=== PATIENT | female | born 1955 | race Caucasian/White ===

== ENCOUNTER 2017-06-24 16:03 | Inpatient (IN) | payer OTHER ==
[~2017-06-24] VITALS: Ht 147.3 cm; Wt 52.6 kg
[2017-06-24 16:13] VITALS: BP 115/69; PULSE 77; RESP 20; TEMP 99.6; O2SAT 100
[2017-06-24] MEDS ORDERED: LORazepam 2 MG TAB PO PRN ×2 (16:15→18:30)
[2017-06-24] MEDS ORDERED: LORazepam 2 MG/ML VIAL IV PUSH PRN ×8 (16:15→18:30)
[2017-06-24] MEDS ORDERED: FLUMAZENIL 0.5 MG/5 ML VIAL IV PUSH PRN ×2 (16:15→18:30)
[2017-06-24] MEDS ORDERED: LORazepam 1 MG TAB PO PRN ×2 (16:15→18:30)
--- NOTE | 2017-06-24 16:18 | PD ---
HPI Chief Complaint: Psychiatric Symptoms Time Seen by Provider: 16:10 Travel History International Travel<30 days: No Contact w/Intl Traveler<30days: No Traveled to known affect area: No History of Present Illness HPI 62-year-old female brought in under the Sanchez act from [facility]. Patient was seen earlier in [facility], and Daniel acted for suicidal ideation. Patient was intoxicated, and stated that she wanted to kill herself and she has no friends and hates her life. She was then placed under the Sanchez acted inappropriately transferred to [facility] who then sent her here due to her intoxication. She is here for medical clearance and psych eval. She has no known drug allergies. [facility] Social History Alcohol Use: Yes Tobacco Use: No Substance Use: No Allergies-Medications (Allergen,Severity, Reaction): Coded Allergies: No Known Allergies (Unverified , 06/24/17) Reported Meds & Prescriptions Reported Meds & Active Scripts Active Active Prescriptions or Reported Medications Unobtainable Review of Systems Except as stated in HPI: all other systems reviewed are Neg General / Constitutional: No: Fever Eyes: No: Visual changes HENT: No: Headaches Cardiovascular: No: Chest Pain or Discomfort Respiratory: No: Shortness of Breath Gastrointestinal: No: Abdominal Pain Genitourinary: No: Dysuria Musculoskeletal: No: Pain Skin: No Rash Neurologic: No: Weakness Psychiatric: Positive: Depression, Suicidal Ideations, Substance Abuse Endocrine: No: Polydipsia Hematologic/Lymphatic: No: Easy Bruising Physical Exam Exam Limitations: Intoxication Narrative GENERAL: Patient is intoxicated. She appears in no obvious distress. She is cooperative. SKIN: Warm and dry. Normal color. Normal turgor. No rash. Patient has a left -sided olecranon tenderness and swelling with small superficial abrasion. HEAD: Atraumatic. Normocephalic. EYES: Pupils equal and round. No scleral icterus. No injection or drainage. ENT: No nasal bleeding or discharge. Mucous membranes pink and moist. Pharynx is clear. Airways patent NECK: Trachea midline. No JVD. Supple and nontender. CARDIOVASCULAR: Regular rate and rhythm. RESPIRATORY: No accessory muscle use. Clear to auscultation. Breath sounds equal bilaterally. GASTROINTESTINAL: Abdomen soft, non-tender, nondistended. Hepatic and splenic margins not palpable. MUSCULOSKELETAL: Extremities without clubbing, cyanosis, or edema. No obvious deformities. NEUROLOGICAL: Awake and alert. No obvious cranial nerve deficits. Motor grossly within normal limits. Five out of 5 muscle strength in the arms and legs. Normal speech. PSYCHIATRIC: Intoxicated Data Data Last Documented VS Vital Signs Date Time Temp Pulse Resp B/P (MAP) Pulse Ox O2 Delivery O2 Flow Rate FiO2 06/24/17 18:08 100 06/24/17 16:13 99.6 77 20 99 Orders Orders Complete Blood Count With Diff (06/24/17 16:13) Comprehensive Metabolic Panel (06/24/17 16:13) Thyroid Stimulating Hormone (06/24/17 16:13) Urinalysis - C+S If Indicated (06/24/17 16:13) Psych Screen (06/24/17 16:13) Drug Screen, Random Urine (06/24/17 16:13) Alcohol Withdrawal Asmt-Ciwa Q4HX18 (06/24/17 16:13) Flumazenil Inj (Romazicon Inj) (06/24/17 16:15) Lorazepam (Ativan) (06/24/17 16:15) Lorazepam Inj (Ativan Inj) (06/24/17 16:15) Lorazepam (Ativan) (06/24/17 16:15) Lorazepam Inj (Ativan Inj) (06/24/17 16:15) Lorazepam Inj (Ativan Inj) (06/24/17 16:15) Lorazepam Inj (Ativan Inj) (06/24/17 16:15) Elbow, Complete (4 Vws) (06/24/17 16:39) Splinting (06/24/17 ) Iv Access Insert/Monitor (06/24/17 17:15) Ecg Monitoring (06/24/17 17:15) Oximetry (06/24/17 17:15) Sodium Chloride 0.9% Flush (Ns Flush) (06/24/17 17:15) Chest, Single Ap (06/24/17 17:15) Nicotine 21 Mg Patch.24 Hr (Habitrol 21 (06/24/17 17:45) Consult Medical Oncology (06/24/17 ) Consult Psychiatry (06/24/17 ) Admit Order (Ed Use Only) (06/24/17 18:16) Vital Signs (Adult) Q4H (06/24/17 18:16) Bedside Glucose KARO.CSUGAR (06/24/17 18:16) Intake + Output KARO.QSHIFT (06/24/17 18:16) Alcohol Withdrawal Asmt-Ciwa Q4HX18 (06/24/17 18:16) ^ Seizure Precautions (06/24/17 18:16) Client Success Specialist / Telemetry KARO.Q8H (06/24/17 18:16) Diet Heart Healthy (06/24/17 Dinner) Sodium Chloride 0.9% Flush (Ns Flush) (06/24/17 18:30) Sodium Chloride 0.9% Flush (Ns Flush) (06/24/17 21:00) Folic Acid (Folate) (06/25/17 09:00) Thiamine (Vit B1) (Vitamin B1) (06/25/17 09:00) Multivitamins-Minerals Therap (Theragran (06/25/17 09:00) Ondansetron Inj (Zofran Inj) (06/24/17 18:30) Comprehensive Metabolic Panel (06/25/17 06:00) Lipase (06/24/17 18:16) Magnesium (Mg) (06/24/17 18:16) Phosphorus (Po4) (06/24/17 18:16) Complete Blood Count With Diff (06/25/17 06:00) Alcohol (Ethanol) (06/24/17 18:16) Drug Screen, Random Urine (06/24/17 18:16) Eeg Study (06/24/17 ) Consult Cm-Etoh Abuse Dc Plan (06/24/17 ) Flumazenil Inj (Romazicon Inj) (06/24/17 18:30) Lorazepam (Ativan) (06/24/17 18:30) Lorazepam Inj (Ativan Inj) (06/24/17 18:30) Lorazepam (Ativan) (06/24/17 18:30) Lorazepam Inj (Ativan Inj) (06/24/17 18:30) Lorazepam Inj (Ativan Inj) (06/24/17 18:30) Lorazepam Inj (Ativan Inj) (06/24/17 18:30) Enoxaparin Inj (Lovenox Inj) (06/24/17 20:00) Scd Bilateral/Knee High KARO.BID (06/24/17 18:16) Esteban Bilateral/Knee High KARO.QSHIFT (06/24/17 18:16) ^ Medication Reconciliation (06/24/17 18:19) Labs Laboratory Tests Test 06/24/17 16:20 White Blood Count 7.9 TH/MM3 Red Blood Count 4.94 MIL/MM3 Hemoglobin 16.7 GM/DL Hematocrit 47.8 % Mean Corpuscular Volume 96.8 FL Mean Corpuscular Hemoglobin 33.8 PG Mean Corpuscular Hemoglobin Concent 35.0 % Red Cell Distribution Width 14.6 % Platelet Count 285 TH/MM3 Mean Platelet Volume 8.5 FL Neutrophils (%) (Auto) 57.0 % Lymphocytes (%) (Auto) 35.7 % Monocytes (%) (Auto) 3.4 % Eosinophils (%) (Auto) 2.7 % Basophils (%) (Auto) 1.2 % Neutrophils # (Auto) 4.5 TH/MM3 Lymphocytes # (Auto) 2.8 TH/MM3 Monocytes # (Auto) 0.3 TH/MM3 Eosinophils # (Auto) 0.2 TH/MM3 Basophils # (Auto) 0.1 TH/MM3 CBC Comment DIFF FINAL Differential Comment Blood Urea Nitrogen 16 MG/DL Creatinine 1.19 MG/DL Random Glucose 98 MG/DL Total Protein 7.8 GM/DL Albumin 3.9 GM/DL Calcium Level 9.7 MG/DL Alkaline Phosphatase 70 U/L Aspartate Amino Transf (AST/SGOT) 37 U/L Alanine Aminotransferase (ALT/SGPT) 25 U/L Total Bilirubin 0.3 MG/DL Sodium Level 141 MEQ/L Potassium Level 4.4 MEQ/L Chloride Level 108 MEQ/L Carbon Dioxide Level 26.7 MEQ/L Anion Gap 6 MEQ/L Estimat Glomerular Filtration Rate 46 ML/MIN Thyroid Stimulating Hormone 3rd Gen 0.931 uIU/ML MDM Medical Decision Making Medical Screen Exam Complete: Yes Emergency Medical Condition: Yes Medical Record Reviewed: Yes Differential Diagnosis Sanchez act. Intoxication. Suicidal ideation. Olecranon contusion. Possible fracture. Narrative Course Patient is intoxicated but appears medically stable time exam. Reported blood alcohol level is 248 from [facility]. Psychiatric labs ordered per protocol. Patient is placed on the [facility] protocol. Psychiatric screening is ordered. CBC is unremarkable except for hemoglobin of 16.7 and a hematocrit of 47.8. X-ray of the left elbow shows: There is a fracture through the olecranon with overlying soft tissue swelling. They also appeared to be some lytic changes within the olecranon. Differential diagnosis includes infection and tumor. No other definite fracture identified. CMP shows Patient is placed in a long posterior arm splint on the left by [facility]. Calls placed to the hospitalist for admission. Diagnosis Primary Impression: Fracture of left olecranon process Qualified Codes: S52.022A - Displaced fracture of olecranon process without intraarticular extension of left ulna, initial encounter for closed fracture Additional Impressions: Lytic bone lesions on xray Alcohol intoxication Qualified Codes: F10.920 - Alcohol use, unspecified with intoxication, uncomplicated Suicidal ideations Admitting Information Admitting Physician Requests: Admit Scripts Unable to Obtain Active Prescriptions or Reported Meds Condition: Stable William Lewis Jun 24, 2017 16:18
[2017-06-24 16:47] LABS: AUTOMATED NEUTROPHIL # 4.5 TH/MM3 (1.8-7.7); BASOPHIL # 0.1 TH/MM3 (0-0.2); BASOPHIL % 1.2 % (0.0-2.0); EOSINOPHIL # 0.2 TH/MM3 (0-0.4); EOSINOPHIL % 2.7 % (0.0-4.0); HEMATOCRIT 47.8 % (35.0-46.0); HEMOGLOBIN 16.7 GM/DL (11.6-15.3); LYMPH % 35.7 % (9.0-44.0); LYMPHOCYTE # 2.8 TH/MM3 (1.0-4.8); MEAN CELL VOLUME 96.8 FL (80.0-100.0); MEAN CORPUSCULAR HEMOGLOBIN 33.8 PG (27.0-34.0); MEAN PLATELET VOLUME 8.5 FL (7.0-11.0); MONO % 3.4 % (0.0-8.0); MONOCYTE # 0.3 TH/MM3 (0-0.9); PLATELET COUNT 285 TH/MM3 (150-450); RED BLOOD COUNT 4.94 MIL/MM3 (4.00-5.30); RED CELL DISTRIBUTION WIDTH 14.6 % (11.6-17.2); WHITE BLOOD COUNT 7.9 TH/MM3 (4.0-11.0)
--- NOTE | 2017-06-24 17:05 | RADRPT ---
EXAM DATE/TIME: 06/24/2017 16:49 [facility] COMPARISON: No previous studies available for comparison. INDICATIONS : Fall. Left elbow pain. MEDICAL HISTORY : None. SURGICAL HISTORY : None. ENCOUNTER: Initial ACUITY: 1 day PAIN SCORE: 9/10 LOCATION: Left upper extremity FINDINGS: There is a fracture through the olecranon with overlying soft tissue swelling. They also appeared to be some lytic changes within the olecranon. Differential diagnosis includes infection and tumor. No o ther definite fracture identified. CONCLUSION: 1. Mildly displaced olecranon fracture with some probable lytic changes within the proximal ulna, wit h overlying soft tissue swelling. Differential diagnosis includes infection and tumor. Saul Garsia MD on June 24, 2017 at 17:00 Board Certified Radiologist. This report was verified electronically.
[2017-06-24] MEDS ORDERED: SODIUM CHLORIDE 0.9% FLUSH 10 ML FLUSH IV FLUSH PRN ×3 (17:15→19:00)
[2017-06-24 17:21] LABS: ALKALINE PHOSPHATASE 70 U/L (45-117); TOTAL BILIRUBIN ADULT 0.3 MG/DL (0.2-1.0); TOTAL PROTEIN 7.8 GM/DL (6.4-8.2)
[2017-06-24 17:27] LABS: ALBUMIN 3.9 GM/DL (3.4-5.0); ALT (GPT) 25 U/L (10-53); AST (GOT) 37 U/L (15-37); BICARBONATE 26.7 MEQ/L (21.0-32.0); BLOOD UREA NITROGEN 16 MG/DL (7-18); CALCIUM 9.7 MG/DL (8.5-10.1); CHLORIDE 108 MEQ/L (98-107); CREATININE 1.19 MG/DL (0.50-1.00); GLOMERULAR FILTRATION RATE 46 ML/MIN (>89); GLUCOSE,RANDOM 98 MG/DL (74-106); SODIUM (NA) 141 MEQ/L (136-145)
--- NOTE | 2017-06-24 17:35 | RADRPT ---
EXAM DATE/TIME: 06/24/2017 17:25 [facility] COMPARISON: No previous studies available for comparison. INDICATIONS : Fall. Congestion. Pre-op. MEDICAL HISTORY : None. SURGICAL HISTORY : None. ENCOUNTER: Initial ACUITY: 1 day PAIN SCORE: 4/10 LOCATION: Bilateral chest FINDINGS: A single view of the chest demonstrates the lungs to be symmetrically aerated without evidence of mas s, infiltrate or effusion. The cardiomediastinal contours are unremarkable. Osseous structures are intact. CONCLUSION: No acute disease. Saul Garsia MD on June 24, 2017 at 17:32 Board Certified Radiologist. This report was verified electronically.
[2017-06-24] MEDS ORDERED: NICOTINE 21 MG/24 HR PATCH T-DERMAL ONE (17:45)
[2017-06-24 18:08] VITALS: O2SAT 100
--- NOTE | 2017-06-24 18:17 | HHI.HP ---
HPI [facility] Primary Care Physician Unknown Admission Diagnosis Diagnoses: Chief Complaint: fall/alcohol use/ Suicidal ideation Travel History International Travel<30 Days: No Contact w/Intl Traveler <30 Da: No Traveled to Known Affected Are: No History of Present Illness 62-year-old female brought in under the Sanchez act from [facility]. Patient was seen earlier in [facility], and Sanchez acted for suicidal ideation. Patient was intoxicated, and stated that she wanted to kill herself and she has no friends and hates her life. She was then placed under the Sanchez acted inappropriately transferred to [facility] who then sent her here due to her intoxication. She is here for medical clearance and psych eval. She has no known drug allergies. Patient in agitated and fidgety. With flight of ideas. Says last drink was today 2 glassed of hard liquor. Says she has pain in her left elbow. No n/v/d/c. Patrick chest pain or sob. Says she usually doesn't get withdrawals. Review of Systems ROS Limitations: Clinical Condition, Intoxication, Psychotic Except as stated in HPI: all other systems reviewed are Neg Past Family Social History Past Medical History HTN Past Surgical History tubal lig appendectomy Reported Medications Last Impressions Chest X-Ray 06/24/17 1715 Signed Impressions: Service Date/Time: Saturday, June 24, 2017 17:25 - CONCLUSION: No acute disease. Saul Garsia MD Elbow X-Ray 06/24/17 1639 Signed Impressions: Service Date/Time: Saturday, June 24, 2017 16:49 - CONCLUSION: 1. Mildly displaced olecranon fracture with some probable lytic changes within the proximal ulna, with overlying soft tissue swelling. Differential diagnosis includes infection and tumor. Saul Garsia MD Allergies: Coded Allergies: No Known Allergies (Unverified , 06/24/17) Family History Father with hemochromatosis Social History Tobacco use 1/2 PPD started smoking at 14 ya EtOH use today 2 glassed of hard liquor with binge drinking Illicit drug use back in her youth many but did not "stuck" with me, in '60s Physical Exam Vital Signs Vital Signs Date Time Temp Pulse Resp B/P (MAP) Pulse Ox O2 Delivery O2 Flow Rate FiO2 06/24/17 18:08 100 06/24/17 16:13 99.6 77 20 115/69 (84) 100 99 Physical Exam GENERAL: This is a well-nourished, well-developed patient, in no apparent distress. Agitated, fidgety. SKIN: No rashes, ecchymoses or lesions. Cool and dry. HEAD: Atraumatic. Normocephalic. No temporal or scalp tenderness. EYES: Pupils equal round and reactive. Extraocular motions intact. No scleral icterus. No injection or drainage. ENT: Nose without bleeding, purulent drainage or septal hematoma. Throat without erythema, tonsillar hypertrophy or exudate. Uvula midline. Airway patent. NECK: Trachea midline. No JVD or lymphadenopathy. Supple, nontender, no meningeal signs. CARDIOVASCULAR: Regular rate and rhythm without murmurs, gallops, or rubs. RESPIRATORY: Clear to auscultation. Breath sounds equal bilaterally. No wheezes , rales, or rhonchi. GASTROINTESTINAL: Abdomen soft, non-tender, nondistended. No hepato-splenomegaly , or palpable masses. No guarding. MUSCULOSKELETAL: Extremities without clubbing, cyanosis. Left elbow tenderness in splint. neurovascular intact. No calf tenderness. Negative Homans sign bilaterally. NEUROLOGICAL: Awake and alert. With flight of idea. Agitated, fidgety. Cranial nerves II through XII intact. Motor and sensory grossly within normal limits. Five out of 5 muscle strength in all muscle groups. Pressured speech. Laboratory Laboratory Tests Test 06/24/17 16:20 White Blood Count 7.9 Red Blood Count 4.94 Hemoglobin 16.7 Hematocrit 47.8 Mean Corpuscular Volume 96.8 Mean Corpuscular Hemoglobin 33.8 Mean Corpuscular Hemoglobin Concent 35.0 Red Cell Distribution Width 14.6 Platelet Count 285 Mean Platelet Volume 8.5 Neutrophils (%) (Auto) 57.0 Lymphocytes (%) (Auto) 35.7 Monocytes (%) (Auto) 3.4 Eosinophils (%) (Auto) 2.7 Basophils (%) (Auto) 1.2 Neutrophils # (Auto) 4.5 Lymphocytes # (Auto) 2.8 Monocytes # (Auto) 0.3 Eosinophils # (Auto) 0.2 Basophils # (Auto) 0.1 CBC Comment DIFF FINAL Differential Comment Blood Urea Nitrogen 16 Creatinine 1.19 Random Glucose 98 Total Protein 7.8 Albumin 3.9 Calcium Level 9.7 Alkaline Phosphatase 70 Aspartate Amino Transf (AST/SGOT) 37 Alanine Aminotransferase (ALT/SGPT) 25 Total Bilirubin 0.3 Sodium Level 141 Potassium Level 4.4 Chloride Level 108 Carbon Dioxide Level 26.7 Anion Gap 6 Estimat Glomerular Filtration Rate 46 Thyroid Stimulating Hormone 3rd Gen 0.931 Result Diagram: 06/24/17 1620 06/24/17 1620 Imaging Last Impressions Chest X-Ray 06/24/17 1715 Signed Impressions: Service Date/Time: Saturday, June 24, 2017 17:25 - CONCLUSION: No acute disease. Saul Garsia MD Elbow X-Ray 06/24/17 1639 Signed Impressions: Service Date/Time: Saturday, June 24, 2017 16:49 - CONCLUSION: 1. Mildly displaced olecranon fracture with some probable lytic changes within the proximal ulna, with overlying soft tissue swelling. Differential diagnosis includes infection and tumor. Saul Garsia MD Caprini VTE Risk Assessment Caprini VTE Risk Assessment: Mod/High Risk (score >= 2) Caprini Risk Assessment Model Point Value = 1 Point Value = 2 Point Value = 3 Point Value = 5 Age 41-60 Minor surgery BMI > 25 kg/m2 Swollen legs Varicose veins or History of unexplained or recurrent spontaneous Oral contraceptives or hormone replacement Sepsis (< 1 month) Serious lung disease, including pneumonia (< 1 month) Abnormal pulmonary function Acute myocardial infarction Congestive heart failure (< 1 month) History of inflammatory bowel disease Medical patient at bed rest Age 61-74 Arthroscopic surgery Major open surgery (> 45 min) Laparoscopic surgery (> 45 min) Malignancy Confined to bed (> 72 hours) Immobilizing plaster cast Central venous access Age >= 75 History of VTE Family history of VTE Factor V Leiden Prothrombin [id number] Lupus anticoagulant Anticardiolipin antibodies Elevated serum homocysteine Heparin-induced thrombocytopenia Other congenital or acquired thrombophilia Stroke (< 1 month) Elective arthroplasty Hip, pelvis, or leg fracture Acute spinal cord injury (< 1 month) Prophylaxis Regimen Total Risk Factor Score Risk Level Prophylaxis Regimen 0-1 Low Early ambulation 2 Moderate Order ONE of the following: *Sequential Compression Device (SCD) *Heparin 5000 units SQ BID 3-4 Higher Order ONE of the following medications: *Heparin 5000 units SQ TID *Enoxaparin/Lovenox 40 mg SQ daily (WT < 150 kg, CrCl > 30 mL/min) *Enoxaparin/Lovenox 30 mg SQ daily (WT < 150 kg, CrCl > 10-29 mL/min) *Enoxaparin/Lovenox 30 mg SQ BID (WT < 150 kg, CrCl > 30 mL/min) AND/OR *Sequential Compression Device (SCD) 5 or more Highest Order ONE of the following medications: *Heparin 5000 units SQ TID (Preferred with Epidurals) *Enoxaparin/Lovenox 40 mg SQ daily (WT < 150 kg, CrCl > 30 mL/min) *Enoxaparin/Lovenox 30 mg SQ daily (WT < 150 kg, CrCl > 10-29 mL/min) *Enoxaparin/Lovenox 30 mg SQ BID (WT < 150 kg, CrCl > 30 mL/min) AND *Sequential Compression Device (SCD) Assessment and Plan Assessment and Plan EtOH use with withdrawals Acute encephalopathy 2/2 EtOH use Suicidal ideation sanchez acted Fall mechanical Left olecranon nondisplaced fracture. Lytic lesions. Start CIWA protocol, MVT, thiamine, folate. Monitor closely. Sitter ordered Consult psych Consult ortho for eval Consult oncology for further eval or lytic lesions norco for pain Monitor BP and start BP meds if need. Healthy heart diet. DVT ppx scd/teds/lovenox Discussed Condition With pt., nurse, ED physician Zenobia Jacinto MD Jun 24, 2017 18:17
[2017-06-24] MEDS ORDERED: ONDANSETRON HCL 4 MG/2 ML VIAL IV PUSH PRN (18:30)
[2017-06-24] MEDS ORDERED: MAGNESIUM HYDROXIDE SUSP 30 ML CUP PO PRN (19:00)
[2017-06-24] MEDS ORDERED: LACTULOSE SYRUP 20 GM/30 ML CUP PO PRN (19:00)
[2017-06-24] MEDS ORDERED: ONDANSETRON HCL 4 MG/2 ML VIAL IVP PRN (19:00)
[2017-06-24] MEDS ORDERED: NALOXONE HCL 0.4 MG/ML AMP IV PUSH PRN (19:00)
[2017-06-24] MEDS ORDERED: BISACODYL 10 MG SUPP RECTAL PRN (19:00)
[2017-06-24] MEDS ORDERED: ACETAMINOPHEN 325 MG TAB PO PRN (19:00)
[2017-06-24] MEDS ORDERED: SENNOSIDES 8.6 MG TAB PO PRN (19:00)
[2017-06-24 19:35] VITALS: BP 128/60; PULSE 83; RESP 16; O2SAT 97
[2017-06-24] MEDS ORDERED: ENOXAPARIN SODIUM 40 MG/0.4 ML SYRINGE SQ SCH ×2 (20:00→21:00)
[2017-06-24 20:26] LABS: MAGNESIUM 2.1 MG/DL (1.5-2.5); PHOSPHORUS 2.9 MG/DL (2.5-4.9)
[2017-06-24] MEDS ORDERED: SODIUM CHLORIDE 0.9% FLUSH 10 ML FLUSH IV FLUSH SCH (21:00)
[2017-06-24] MEDS: SODIUM CHLORIDE 0.9% FLUSH 10 ML FLUSH IV FLUSH SCH (21:22)
[2017-06-24] MEDS: DOCUSATE SODIUM 50 MG/SENNA 8.6 MG TAB PO SCH (21:23)
[2017-06-24] MEDS: ACETAMINOPHEN/HYDROcodone 325 MG/5 MG TAB PO PRN (21:49)
[2017-06-25] VITALS (11 sets, daily range): BP systolic 111–170; BP diastolic 60–77; PULSE 69–87; RESP 16–18; TEMP 98–99.1; O2SAT 96–99
[2017-06-25 03:29] LABS: BACTERIA, URINE MANY /hpf; BILIRUBIN, URINE NEG (NEG); BLOOD, URINE NEG (NEG); GLUCOSE,URINE NEG (NEG); KETONE, URINE NEG (NEG); NITRITE,URINE POS (NEG); PH, URINE 5.5 (5.0-8.5); SQUAMOUS EPITHELIAL CELL URINE 1 /hpf (0-5); URINE COLOR LIGHT-YELLOW (YELLW/STRAW); URINE LEUKOCYTE ESTERASE SMALL (NEG); WHITE BLOOD CELL CLUMPS RARE
[2017-06-25] MEDS: DOCUSATE SODIUM 50 MG/SENNA 8.6 MG TAB PO SCH ×2 (09:00→21:00)
[2017-06-25] MEDS: SODIUM CHLORIDE 0.9% FLUSH 10 ML FLUSH IV FLUSH SCH ×2 (09:00→21:27)
[2017-06-25] MEDS: FOLIC ACID 1 MG TAB PO SCH (09:10)
[2017-06-25] MEDS: MULTIVITAMINS/MINERALS THERAPEUTIC TAB PO SCH (09:10)
--- NOTE | 2017-06-25 09:10 | HHI.PR ---
Subjective Remarks Pt states that she needs IV hydration because she has been feeling nauseous from the pain meds and doesn't want to take them. She states that she will not eat or drink because "I know my body" and it will make things worst. She complains of pain in her left arm and worries that moving it accidentally might make things worst. She denies to me any suicidal thoughts although she chuckles when she says this to me. Pt also asks about speaking w a psychiatrist. Objective Vitals Vital Signs Date Time Temp Pulse Resp B/P (MAP) Pulse Ox O2 Delivery O2 Flow Rate FiO2 06/25/17 07:57 98.8 87 18 119/61 (80) 96 06/25/17 07:39 97 21 06/25/17 05:32 77 06/25/17 03:15 98.0 69 16 111/60 (77) 98 06/25/17 03:09 06/25/17 02:01 79 18 119/67 (84) 97 Room Air 06/24/17 19:35 83 16 128/60 (82) 97 Room Air 06/24/17 18:08 100 06/24/17 16:13 99.6 77 20 115/69 (84) 100 99 Result Diagram: 06/24/17 1620 06/24/17 1620 Imaging Last Impressions Chest X-Ray 06/24/17 1715 Signed Impressions: Service Date/Time: Saturday, June 24, 2017 17:25 - CONCLUSION: No acute disease. Saul Garsia MD Elbow X-Ray 06/24/17 1639 Signed Impressions: Service Date/Time: Saturday, June 24, 2017 16:49 - CONCLUSION: 1. Mildly displaced olecranon fracture with some probable lytic changes within the proximal ulna, with overlying soft tissue swelling. Differential diagnosis includes infection and tumor. Saul Garsia MD Objective Remarks GENERAL: anxious CARDIOVASCULAR: Regular rate and rhythm without murmurs RESPIRATORY: Clear to auscultation. Breath sounds equal bilaterally. No wheezes GASTROINTESTINAL: Abdomen soft, non-tender when I examined her, nondistended. MUSCULOSKELETAL: Left elbow tenderness in splint. neurovascular intact. moves other ext NEUROLOGICAL: Awake and alert. Pressured speech.demanding IVFs A/P Assessment and Plan EtOH use with withdrawals Acute encephalopathy 2/2 EtOH use Suicidal ideation ngo acted Fall mechanical mildly displaced left olecranon nondisplaced fracture. Lytic lesions. N/V from pain meds, doesn't want to eat or drink anything as "I know myself". states she doesn't want to make things worst. I have started her on NS@84ml/hr. On CIWA protocol, MVT, thiamine, folate. Monitor closely. Sitter at bedside Psych has been consulted Ortho also consulted for eval. I discussed the case w Dr. Bates and he would like pt NPO for possible OR today Oncology consult for further eval or lytic lesions norco for pain Monitor BP and start BP meds if need. NPO DVT ppx scd/teds/lovenox Discharge Planning OR today Awaiting final recs from all consulted. Pt under Backer Act Marjorie Thomas MD Jun 25, 2017 09:10
[2017-06-25] MEDS: THIAMINE HCL 100 MG TAB PO SCH (09:11)
[2017-06-25] MEDS: SODIUM CHLOR 0.9% 1000 ML INJ 1,000 ML IV SCH ×2 (11:17→21:35)
--- NOTE | 2017-06-25 11:17 | PD.CONS ---
History of Present Illness Service Hematology/Oncology Consult Requested By Hospitalist Service Reason for Consult Suspected lytic lesion involving the elbow as noted on x-ray. Primary Care Physician Unknown Diagnoses: History of Present Illness Chief Complaint: Left elbow pain after trauma which the patient cannot recall. History of presenting illness: Ms. Jensen is a 62-year-old female who lives in [facility], she is originally from [facility]. The patient was brought in to [facility] emergency department by the police for suicidal ideation. She is Sanchez acted at this time. The patient tells me she had been on an alcohol binge and called her brother up who lives out of state and apparently made some comments which suggested she was suicidal. Her brother called the police who came to check in on the patient. The patient does not recall what happened after the arrival of the police but she ended up with bruises "all over her body "and pain in her left elbow. She is brought into the emergency department where an x-ray was done of the left elbow on 06/24/2017. X-ray revealed a mildly displaced olecranon fracture with some indication of lytic changes within the proximal ulna, there was overlying's soft tissue swelling. Differential diagnosis included infection versus tumor. Because of this reading the hematology service was asked to see the patient to rule out an underlying lytic/destructive process in the bone. Review of Systems Constitutional: COMPLAINS OF: Fatigue, DENIES: Diaphoretic episodes, Fever, Weight gain, Weight loss, Chills, Dizziness, Change in appetite, Night Sweats Endocrine: DENIES: Abnorml menstrual pattern, Heat/cold intolerance, Polydipsia , Polyuria, Polyphagia Eyes: DENIES: Blurred vision, Diplopia, Eye inflammation, Eye pain, Vision loss , Photosensitivity, Double Vision Ears, nose, mouth, throat: DENIES: Tinnitus, Hearing loss, Vertigo, Nasal discharge, Oral lesions, Throat pain, Hoarseness, Ear Pain, Running Nose, Epistaxis, Sinus Pain, Toothache, Odynophagia Respiratory: COMPLAINS OF: Cough, DENIES: Apneas, Snoring, Wheezing, Hemoptysis , Sputum production, Shortness of breath Cardiovascular: DENIES: Chest pain, Palpitations, Syncope, Dyspnea on Exertion , PND, Lower Extremity Edema, Orthopnea, Claudication Gastrointestinal: DENIES: Abdominal pain, Black stools, Bloody stools, Constipation, Diarrhea, Nausea, Vomiting, Difficulty Swallowing, Anorexia Genitourinary: DENIES: Abnormal vaginal bleeding, Dysmenorrhea, Dyspareunia, Sexual dysfunction, Urinary frequency, Urinary incontinence, Urgency, Hematuria , Dysuria, Nocturia, Vaginal discharge Musculoskeletal: COMPLAINS OF: Joint pain (Left elbow pain), Muscle aches, Joint Swelling, Back pain, Neck pain, DENIES: Stiffness Integumentary: DENIES: Abnormal pigmentation, Pruritus, Rash, Nail changes, Breast masses, Breast skin changes, Nipple discharge Hematologic/lymphatic: COMPLAINS OF: Bruising, DENIES: Lymphadenopathy Immunologic/allergic: DENIES: Eczema, Urticaria Neurologic: DENIES: Abnormal gait, Headache, Localized weakness, Paresthesias, Seizures, Speech Problems, Tremor, Poor Balance Psychiatric: COMPLAINS OF: Anxiety, Confusion, Mood changes, Depression, Suicidal Ideation, DENIES: Hallucinations, Agitation, Homicidal Ideation, Delusions Except as stated in HPI: all other systems reviewed are Neg Past Family Social History Allergies: Coded Allergies: No Known Allergies (Unverified , 06/24/17) Past Medical History Reported history of osteoporosis Reported history of osteoarthritis Degenerative joint disease Hypertension Hyperlipidemia Migraines Fibromyalgia Chronic fatigue syndrome Depression Past Surgical History Tubal ligation Appendectomy Right hip replacement. Active Ordered Medications Normal saline 84 cc/h Hydrocodone/acetaminophen 5/325 1 tablet p.o. 2 4 hours needed for pain Tylenol 650 mg p.o. every 4 hours as needed for fever Senna Colace 1 tablet p.o. twice daily Lovenox 40 mg subcu every 24 hours. Flumazenil 0.2 mg IV every 8 minute as needed. Folic acid 1 mg p.o. daily Lactulose 30 mL p.o. as needed daily for severe constipation. Ativan 1 mg p.o. every 4 hours need for CIWA protocol score 8-10. Lorazepam 2 mg p.o. every 2 hours as needed for CIWA score of 11-14. Nicotine patch 21 mg patch every 24 hours Zofran 4 mg IV every 6 hours needed for nausea and vomiting Thiamine 100 mg p.o. daily Family History Father at the age of 45 of complications of hemochromatosis. Mother at 78 causes unknown Brother recently of metastatic lung cancer. Social History Patient is single, she lives at home alone, she is originally from [facility]. She has 2 adult children. She is an active smoker, smoking about half a pack a day she has been smoking since she was in her 20s. She tells me she drinks heavily and at times goes on alcohol binges. Physical Exam Vital Signs Vital Signs Date Time Temp Pulse Resp B/P (MAP) Pulse Ox O2 Delivery O2 Flow Rate FiO2 06/25/17 07:57 98.8 87 18 119/61 (80) 96 06/25/17 07:39 97 21 06/25/17 05:32 77 06/25/17 03:15 98.0 69 16 111/60 (77) 98 06/25/17 03:09 06/25/17 02:01 79 18 119/67 (84) 97 Room Air 06/24/17 19:35 83 16 128/60 (82) 97 Room Air 06/24/17 18:08 100 06/24/17 16:13 99.6 77 20 115/69 (84) 100 99 Physical Exam GENERAL: Middle-aged lady laying in bed, she appears to be no acute distress, she appears to be calm and collected at this point. Her left arm and elbow is in a elastic bandage and is immobilized. SKIN: No rashes, skin is cool and dry, she does have some scattered bruises no ecchymosis. In particular she has a bruise involving her ring finger on the right arm. HEAD: Atraumatic. Normocephalic. No temporal or scalp tenderness. EYES: Pupils equal round and reactive. Extraocular motions intact. No scleral icterus. No injection or drainage. ENT: Nose without bleeding, purulent drainage or septal hematoma. Throat without erythema, tonsillar hypertrophy or exudate. Uvula midline. Airway patent. NECK: Trachea midline. No JVD or lymphadenopathy. Supple, nontender, no meningeal signs. CARDIOVASCULAR: Regular rate and rhythm without murmurs, gallops, or rubs. RESPIRATORY: Clear to auscultation. Breath sounds equal bilaterally. No wheezes , rales, or rhonchi. GASTROINTESTINAL: Abdomen soft, non-tender, nondistended. No hepato-splenomegaly , or palpable masses. No guarding. MUSCULOSKELETAL: Left upper extremity is bandaged, it is immobilized at the elbow. NEUROLOGICAL: Awake and alert. Cranial nerves II through XII intact. Motor and sensory grossly within normal limits. Five out of 5 muscle strength in all muscle groups. Normal speech. Laboratory Laboratory Tests Test 06/24/17 16:20 06/24/17 19:47 06/25/17 02:35 White Blood Count 7.9 Red Blood Count 4.94 Hemoglobin 16.7 Hematocrit 47.8 Mean Corpuscular Volume 96.8 Mean Corpuscular Hemoglobin 33.8 Mean Corpuscular Hemoglobin Concent 35.0 Red Cell Distribution Width 14.6 Platelet Count 285 Mean Platelet Volume 8.5 Neutrophils (%) (Auto) 57.0 Lymphocytes (%) (Auto) 35.7 Monocytes (%) (Auto) 3.4 Eosinophils (%) (Auto) 2.7 Basophils (%) (Auto) 1.2 Neutrophils # (Auto) 4.5 Lymphocytes # (Auto) 2.8 Monocytes # (Auto) 0.3 Eosinophils # (Auto) 0.2 Basophils # (Auto) 0.1 CBC Comment DIFF FINAL Differential Comment Blood Urea Nitrogen 16 Creatinine 1.19 Random Glucose 98 Total Protein 7.8 Albumin 3.9 Calcium Level 9.7 Alkaline Phosphatase 70 Aspartate Amino Transf (AST/SGOT) 37 Alanine Aminotransferase (ALT/SGPT) 25 Total Bilirubin 0.3 Sodium Level 141 Potassium Level 4.4 Chloride Level 108 Carbon Dioxide Level 26.7 Anion Gap 6 Estimat Glomerular Filtration Rate 46 Thyroid Stimulating Hormone 3rd Gen 0.931 Phosphorus Level 2.9 Magnesium Level 2.1 Lipase 281 Ethyl Alcohol Level 243 Urine Color LIGHT-YELLOW Urine Turbidity CLEAR Urine pH 5.5 Urine Specific Eagar 1.012 Urine Protein NEG Urine Glucose (UA) NEG Urine Ketones NEG Urine Occult Blood NEG Urine Nitrite POS Urine Bilirubin NEG Urine Urobilinogen LESS THAN 2.0 Urine Leukocyte Esterase SMALL Urine RBC 1 Urine WBC 15 Urine WBC Clumps RARE Urine Squamous Epithelial Cells 1 Urine Bacteria MANY Microscopic Urinalysis Comment CULTURE INDICATED Urine Opiates Screen NEG Urine Barbiturates Screen NEG Urine Amphetamines Screen NEG Urine Benzodiazepines Screen POS Urine Cocaine Screen NEG Urine Cannabinoids Screen NEG Date/Time Source Procedure Growth Status 06/25/17 02:35 Urine Random Urine Urine Culture Pending Received Result Diagram: 06/24/17 1620 06/24/17 1620 Imaging X-ray of the left elbow dated 06/24/2017 reveals a mildly displaced olecranon fracture with some probable lytic changes within the proximal ulna. Overlying soft tissue swelling is noted. Differential diagnosis includes infection and/ or tumor. Assessment and Plan Assessment and Plan This is a 62-year-old female who was brought in by the Police Department under the sanchez act for suicidal ideation. The patient had apparently been on an alcohol binge and called 1 of her brothers who lives out of state and made some statements that concerned him about her being a risk to herself. The patient does not recall exactly what she said or what she did after the police arrived. At any rate she was admitted to this facility primarily for suicidal ideation however she reported left elbow pain. X-ray of the left elbow revealed a mildly displaced olecranon fracture, additional comment was made on abnormal findings involving the proximal left ulna with findings concerning for possible underlying lytic lesions. The hematology service been asked to see her to rule out an underlying primary hematologic disorder which could result in lytic lesions such as a plasma cell disorder. Plan: 1. Possible lytic lesion involving the left elbow: Obtain CT scan without contrast for further characterization. 2. Obtain serum protein electro pheresis and serum immunofixation to identify possible underlying monoclonal protein. 3. Polycythemia: She does have a family history of hereditary hemochromatosis, her father reportedly of complications of this. I requested serum iron studies including percent iron saturation and ferritin levels. Hematology service to follow along with you. Additional recommendations will be made after review of the CT imaging studies and urine protein electro pheresis/serum immunofixation. Moustapha Frost MD Jun 25, 2017 11:17
--- NOTE | 2017-06-25 12:12 | RADRPT ---
EXAM DATE/TIME: 06/25/2017 11:41 [facility] COMPARISON: ELBOW LEFT COMPLETE (4 VWS), June 24, 2017, 16:49. INDICATIONS : Pain and swelling in the left elbow with known comminuted olecranon fracture.. RADIATION DOSE: 32.16 CTDIvol (mGy) ; Patient positioning MEDICAL HISTORY : Osteoporosis. Hypertension. SURGICAL HISTORY : Tubal ligation. ENCOUNTER: Initial ACUITY: 1 day PAIN SCALE: 9/10 LOCATION: Left elbow TECHNIQUE: Volumetric scanning of the elbow was performed. Using automated exposure control and adjustment of t he mA and/or kV according to patient size, radiation dose was kept as low as reasonably achievable to obtain optimal diagnostic quality images. DICOM format image data is available electronically for r eview and comparison. FINDINGS: A mildly comminuted fracture deformity of the olecranon is again noted with several fracture jennifer es extending into the joint. There is mild distraction of the distal fracture fragment measuring up t o approximately 6-7 mm. The radial head is intact and in normal alignment. The olecranon fragments ar e in normal alignment with distal humerus which is intact. There is soft tissue swelling over the ole cranon. There is a small joint effusion. CONCLUSION: Mild comminuted fracture deformity of the olecranon again noted. Ricardo Oropeza MD on June 25, 2017 at 12:06 Board Certified Radiologist. This report was verified electronically.
[2017-06-25 12:33] LABS: AUTOMATED NEUTROPHIL # 7.4 TH/MM3 (1.8-7.7); BASOPHIL # 0.1 TH/MM3 (0-0.2); BASOPHIL % 0.7 % (0.0-2.0); EOSINOPHIL % 0.1 % (0.0-4.0); HEMATOCRIT 43.9 % (35.0-46.0); LYMPH % 18.8 % (9.0-44.0); LYMPHOCYTE # 1.9 TH/MM3 (1.0-4.8); MEAN CELL VOLUME 97.3 FL (80.0-100.0); MEAN CORPUSCULAR HEMOGLOBIN 33.3 PG (27.0-34.0); MEAN CORPUSCULAR HGB CONC 34.2 % (32.0-36.0); MEAN PLATELET VOLUME 8.9 FL (7.0-11.0); MONO % 5.5 % (0.0-8.0); MONOCYTE # 0.5 TH/MM3 (0-0.9); NEUT % 74.9 % (16.0-70.0); PLATELET COUNT 263 TH/MM3 (150-450); RED BLOOD COUNT 4.52 MIL/MM3 (4.00-5.30); RED CELL DISTRIBUTION WIDTH 14.5 % (11.6-17.2); WHITE BLOOD COUNT 9.9 TH/MM3 (4.0-11.0)
[2017-06-25 13:11] LABS: ALBUMIN 4.1 GM/DL (3.4-5.0); ALKALINE PHOSPHATASE 72 U/L (45-117); ALT (GPT) 22 U/L (10-53); AST (GOT) 18 U/L (15-37); BICARBONATE 27.6 MEQ/L (21.0-32.0); BLOOD UREA NITROGEN 19 MG/DL (7-18); CALCIUM 8.9 MG/DL (8.5-10.1); CHLORIDE 105 MEQ/L (98-107); CREATININE 0.92 MG/DL (0.50-1.00); GLOMERULAR FILTRATION RATE 62 ML/MIN (>89); GLUCOSE,RANDOM 92 MG/DL (74-106); SODIUM (NA) 142 MEQ/L (136-145); TOTAL BILIRUBIN ADULT 0.5 MG/DL (0.2-1.0); TOTAL PROTEIN 7.5 GM/DL (6.4-8.2)
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
[2017-06-25 14:05] LABS: IMMUNOGLOBULIN A 85 MG/DL (85-468); IRON (FE) 96 MCG/DL (50-170); KAPPA LAMBDA RATIO 1.79 (1.57-3.93); KAPPA LIGHT CHAIN 152 MG/DL (170-370); LAMBDA LIGHT CHAIN 85 MG/DL (90-210)
[2017-06-25 14:15] LABS: FERRITIN 39 NG/ML (8-252); IMMUNOGLOBULIN G 635 MG/DL (650-1610); IMMUNOGLOBULIN M 61 MG/DL (45-276); TOTAL IRON BINDING CAPACITY 480 MCG/DL (250-450)
--- NOTE | 2017-06-25 14:47 | PD.CONS ---
cc: Boy Bates Jr., MD HPI Service Orthopedic Surgeons Consult Requested By Primary Care Physician Unknown Admission Diagnosis Diagnoses: Chief Complaint: Left olecranon fracture History of Present Illness 62-year-old female brought in under the Sanchez act from [facility]. Patient was seen earlier in [facility], and Sanchez acted for suicidal ideation. Patient was intoxicated, and stated that she wanted to kill herself and she has no friends and hates her life. She does not recall the incident or the fall causing her injury to her left elbow. Says last drink was today 2 glassed of hard liquor. -c/o left elbow pain and inability bear weight or ROM. -X-ray taken the emergency department reveal displaced olecranon fracture. -Denies any head injuries. Denies loss of consciousness. -Currently is alert, pain localized at left elbow, patient's is 6 out of 10, exacerbated by any range of motion, WB, relieved at rest and with IV pain medicine, pain is nonradiating, dull, not associated with any paresthesia and numbness to the extremity. ROS - General Review of Systems ROS Limitations: Clinical Condition, Intoxication, Psychotic Except as stated in HPI: all other systems reviewed are Neg PFSH Past Family Social History Past Medical History HTN Past Surgical History tubal lig appendectomy Reported Medications Last Impressions Chest X-Ray 06/24/17 1715 Signed Impressions: Service Date/Time: Saturday, June 24, 2017 17:25 - CONCLUSION: No acute disease. Saul Garsia MD Elbow X-Ray 06/24/17 1639 Signed Impressions: Service Date/Time: Saturday, June 24, 2017 16:49 - CONCLUSION: 1. Mildly displaced olecranon fracture with some probable lytic changes within the proximal ulna, with overlying soft tissue swelling. Differential diagnosis includes infection and tumor. Saul Garsia MD Allergies: Coded Allergies: No Known Allergies (Unverified , 06/24/17) Family History Father with hemochromatosis Social History Tobacco use 1/2 PPD started smoking at 14 ya EtOH use today 2 glassed of hard liquor with binge drinking Illicit drug use back in her youth many but did not "stuck" with me, in '60s Past Family Social History Past Medical History HTN Past Surgical History tubal lig appendectomy Allergies: Coded Allergies: No Known Allergies (Unverified , 06/24/17) Active Ordered Medications Current Medications Medications (Trade) Dose Ordered Sig/Mercedes Route Start Time Stop Time Status Last Admin (Folate) 1 mg DAILY PO 06/25/17 09:00 06/30/17 08:59 06/25/17 09:10 (Vitamin B1) 100 mg DAILY PO 06/25/17 09:00 06/25/17 09:11 (Theragran M Tab) 1 tab DAILY PO 06/25/17 09:00 06/30/17 08:59 06/25/17 09:10 (Romazicon Inj) 0.2 mg Q1M PRN IV PUSH 06/24/17 18:30 (Ativan) 1 mg Q4H PRN PO 06/24/17 18:30 (Ativan Inj) 1 mg Q4H PRN IV PUSH 06/24/17 18:30 (Ativan) 2 mg Q2H PRN PO 06/24/17 18:30 (Ativan Inj) 2 mg Q2H PRN IV PUSH 06/24/17 18:30 (Ativan Inj) 2 mg Q1H PRN IV PUSH 06/24/17 18:30 (Ativan Inj) 2 mg Q15M PRN IV PUSH 06/24/17 18:30 (Lovenox Inj) 40 mg Q24H SQ 06/24/17 20:00 06/24/17 20:20 (NS Flush) 2 ml UNSCH PRN IV FLUSH 06/24/17 19:00 (NS Flush) 2 ml BID IV FLUSH 06/24/17 21:00 06/24/17 21:22 (Tylenol) 650 mg Q4H PRN PO 06/24/17 19:00 (Zofran Inj) 4 mg Q6H PRN IVP 06/24/17 19:00 06/25/17 04:31 (Narcan Inj) 0.4 mg UNSCH PRN IV PUSH 06/24/17 19:00 (Linda-Colace) 1 tab BID PO 06/24/17 21:00 06/24/17 21:23 (Milk Of Magnesia Liq) 30 ml Q12H PRN PO 06/24/17 19:00 (Senokot) 17.2 mg Q12H PRN PO 06/24/17 19:00 (Dulcolax Supp) 10 mg DAILY PRN RECTAL 06/24/17 19:00 (Lactulose Liq) 30 ml DAILY PRN PO 06/24/17 19:00 ([place] 5-325 Mg) 1 tab Q4H PRN PO 06/24/17 19:30 06/24/17 21:49 Sodium Chloride 1,000 ml @ 84 mls/hr [id number] IV 06/25/17 09:00 06/25/17 11:17 Reported Meds & Active Scripts Active Active Prescriptions or Reported Medications Unobtainable Family History Father with hemochromatosis Social History Tobacco use 1/2 PPD started smoking at 14 ya EtOH use today 2 glassed of hard liquor with binge drinking Illicit drug use back in her youth many but did not "stuck" with me, in '60s Physical Exam Vital Signs Vital Signs Date Time Temp Pulse Resp B/P (MAP) Pulse Ox O2 Delivery O2 Flow Rate FiO2 06/25/17 12:02 99.1 80 18 170/72 (104) 97 06/25/17 08:00 78 06/25/17 07:57 98.8 87 18 119/61 (80) 96 06/25/17 07:39 97 21 06/25/17 05:32 77 06/25/17 03:15 98.0 69 16 111/60 (77) 98 06/25/17 03:09 06/25/17 02:01 79 18 119/67 (84) 97 Room Air 06/24/17 19:35 83 16 128/60 (82) 97 Room Air 06/24/17 18:08 100 06/24/17 16:13 99.6 77 20 115/69 (84) 100 99 Physical Exam Alert awake and oriented x 3. No acute distress. Head: NC/AT Neck: No pain with any range of motion and neck. Pulmonary: Normal respiratory effort. RIGHT upper extremity: No deformity. Intact sensation distally in median, ulnar , and radial nerve. Intact motor in anterior interosseous, posterior interosseous, and ulnar nerve. 2+ radial artery pulses. Good cap refill. LEFT upper extremity exam: splint in place. Intact sensation distally. Able to wiggle fingers. Good cap refill. RIGHT lower extremity: Neurovascularly intact, +EHL/FHL, + PT/DP pulses. Supple compartments. Negative Homans sign. LEFT lower extremity: Neurovascularly intact, +EHL/FHL, + PT/DP pulses. Supple compartments. Negative Homans sign. Laboratory Laboratory Tests Test 06/24/17 16:20 06/24/17 19:47 06/25/17 02:35 06/25/17 11:30 White Blood Count 7.9 Red Blood Count 4.94 Hemoglobin 16.7 Hematocrit 47.8 Mean Corpuscular Volume 96.8 Mean Corpuscular Hemoglobin 33.8 Mean Corpuscular Hemoglobin Concent 35.0 Red Cell Distribution Width 14.6 Platelet Count 285 Mean Platelet Volume 8.5 Neutrophils (%) (Auto) 57.0 Lymphocytes (%) (Auto) 35.7 Monocytes (%) (Auto) 3.4 Eosinophils (%) (Auto) 2.7 Basophils (%) (Auto) 1.2 Neutrophils # (Auto) 4.5 Lymphocytes # (Auto) 2.8 Monocytes # (Auto) 0.3 Eosinophils # (Auto) 0.2 Basophils # (Auto) 0.1 CBC Comment DIFF FINAL Differential Comment Blood Urea Nitrogen 16 19 Creatinine 1.19 0.92 Random Glucose 98 92 Total Protein 7.8 7.5 Albumin 3.9 4.1 Calcium Level 9.7 8.9 Alkaline Phosphatase 70 72 Aspartate Amino Transf (AST/SGOT) 37 18 Alanine Aminotransferase (ALT/SGPT) 25 22 Total Bilirubin 0.3 0.5 Sodium Level 141 142 Potassium Level 4.4 3.4 Chloride Level 108 105 Carbon Dioxide Level 26.7 27.6 Anion Gap 6 9 Estimat Glomerular Filtration Rate 46 62 Thyroid Stimulating Hormone 3rd Gen 0.931 Phosphorus Level 2.9 Magnesium Level 2.1 Lipase 281 Ethyl Alcohol Level 243 Urine Color LIGHT-YELLOW Urine Turbidity CLEAR Urine pH 5.5 Urine Specific [place] 1.012 Urine Protein NEG Urine Glucose (UA) NEG Urine Ketones NEG Urine Occult Blood NEG Urine Nitrite POS Urine Bilirubin NEG Urine Urobilinogen LESS THAN 2.0 Urine Leukocyte Esterase SMALL Urine RBC 1 Urine WBC 15 Urine WBC Clumps RARE Urine Squamous Epithelial Cells 1 Urine Bacteria MANY Microscopic Urinalysis Comment CULTURE INDICATED Urine Opiates Screen NEG Urine Barbiturates Screen NEG Urine Amphetamines Screen NEG Urine Benzodiazepines Screen POS Urine Cocaine Screen NEG Urine Cannabinoids Screen NEG Test 06/25/17 11:36 06/25/17 13:20 White Blood Count 9.9 Red Blood Count 4.52 Hemoglobin 15.0 Hematocrit 43.9 Mean Corpuscular Volume 97.3 Mean Corpuscular Hemoglobin 33.3 Mean Corpuscular Hemoglobin Concent 34.2 Red Cell Distribution Width 14.5 Platelet Count 263 Mean Platelet Volume 8.9 Neutrophils (%) (Auto) 74.9 Lymphocytes (%) (Auto) 18.8 Monocytes (%) (Auto) 5.5 Eosinophils (%) (Auto) 0.1 Basophils (%) (Auto) 0.7 Neutrophils # (Auto) 7.4 Lymphocytes # (Auto) 1.9 Monocytes # (Auto) 0.5 Eosinophils # (Auto) 0.0 Basophils # (Auto) 0.1 CBC Comment DIFF FINAL Differential Comment Iron Level 96 Total Iron Binding Capacity 480 Percent Iron Saturation 20.0 Ferritin 39 Total Protein 7.3 Immunoglobulin G Total 635 Immunoglobulin A 85 Immunoglobulin M 61 Immunoglobulin [place]/Lambda Ratio 1.79 [place] Light Chain Analysis 152 Lambda Light Chain Analysis 85 Date/Time Source Procedure Growth Status 06/25/17 02:35 Urine Random Urine Urine Culture Pending Received Result Diagram: 06/25/17 1136 06/25/17 1130 Imaging Last 72 hours Impressions Upper Extremity CT 06/25/17 0000 Signed Impressions: Service Date/Time: Sunday, June 25, 2017 11:41 - CONCLUSION: Mild comminuted fracture deformity of the olecranon again noted. Ricardo Oropeza MD Chest X-Ray 06/24/17 1715 Signed Impressions: Service Date/Time: Saturday, June 24, 2017 17:25 - CONCLUSION: No acute disease. Saul Garsia MD Elbow X-Ray 06/24/17 1639 Signed Impressions: Service Date/Time: Saturday, June 24, 2017 16:49 - CONCLUSION: 1. Mildly displaced olecranon fracture with some probable lytic changes within the proximal ulna, with overlying soft tissue swelling. Differential diagnosis includes infection and tumor. Saul Garsia MD Assessment & Plan Assessment and Plan 62-year-old female brought in under the Sanchez act from [facility]. Patient was seen earlier in [facility], and Sanchez acted for suicidal ideation. Patient was intoxicated, and stated that she wanted to kill herself and she has no friends and hates her life. She does not recall the incident or the fall causing the injury to her left elbow. She is grossly neurovascularly intact. X-ray examination revealed mildly displaced olecranon fracture. Although her fracture is currently mildly displaced, there is an increased risk of further fracture displacement with traction on the tricep. I therefore would recommend open reduction internal fixation. I discussed my treatment plans with the patient, as well as risks, benefits and alternatives of surgical Intervention versus nonoperative treatment. In this case, the risks of operative intervention involves bleeding , infection, nonunion, malunion, risks of damage to neurovascular structures, the risk of needing further surgery, posttraumatic arthritis and the risks involved with complication from anesthesia. All questions were answered. At this time, the patient is unable to give surgical consent and we are unable to contact her power of attorney recruiter. Psychiatry consult pending. OR maybe tomorrow Boy Bates Jr., MD Jun 25, 2017 14:47
[2017-06-25] MEDS: ACETAMINOPHEN/HYDROcodone 325 MG/5 MG TAB PO PRN ×2 (15:15→20:12)
--- NOTE | 2017-06-25 17:27 | MG ---
cc: Laura Hansen MD REQUESTING PHYSICIAN: Zenobia Jacinto MD EEG was obtained on this 62-year-old patient being evaluated for encephalopathy. The EEG shows a mixture of rhythms. There are beta rhythms of low-amplitude. There is artifact and there is a fair amount of alpha as well as theta activity. The alpha/theta rhythms have higher amplitude in the temporal head regions bilaterally. The patient seems awake and drowsy intermittently. Photic stimulation shows no significant change. INTERPRETATION: Mildly abnormal EEG because of mild slowing bilaterally, maximum bilateral temporal head regions, suggesting a mild diffuse disturbance of cerebral function. No epileptiform features present. Laura Samuel. MD [place] OFC/SB , 05:10 PM , 05:25 PM
[2017-06-25] MEDS ORDERED: LORazepam 0.5 MG TAB PO ONE (21:00)
[2017-06-25] MEDS ORDERED: ALPRAZolam 0.5 MG TAB PO ONE (23:45)
[2017-06-26] VITALS (9 sets, daily range): BP systolic 132–153; BP diastolic 65–78; PULSE 61–91; RESP 16–18; TEMP 97.5–98.8; O2SAT 94–98
[2017-06-26] MEDS: ACETAMINOPHEN/HYDROcodone 325 MG/5 MG TAB PO PRN (00:01)
[2017-06-26 06:36] LABS: BICARBONATE 25.9 MEQ/L (21.0-32.0); CALCIUM 8.2 MG/DL (8.5-10.1); CREATININE 0.69 MG/DL (0.50-1.00)
--- NOTE | 2017-06-26 08:08 | HHI.PR ---
Subjective Remarks in no acute distress. pain is fairly controlled. doesn't feel anxious. awaiting surgery. Objective Vitals Vital Signs Date Time Temp Pulse Resp B/P (MAP) Pulse Ox O2 Delivery O2 Flow Rate FiO2 06/26/17 04:04 98.5 71 18 137/68 (91) 96 06/26/17 04:00 71 06/26/17 00:00 75 06/25/17 23:58 98.3 77 18 165/77 (106) 99 06/25/17 20:00 78 06/25/17 19:56 98.5 80 18 144/68 (93) 96 06/25/17 16:22 98.3 75 18 139/64 (89) 97 06/25/17 16:15 20 06/25/17 12:02 99.1 80 18 170/72 (104) 97 Result Diagram: 06/25/17 1136 06/26/17 0506 Imaging Last Impressions Upper Extremity CT 06/25/17 0000 Signed Impressions: Service Date/Time: Sunday, June 25, 2017 11:41 - CONCLUSION: Mild comminuted fracture deformity of the olecranon again noted. Ricardo Oropeza MD Chest X-Ray 06/24/17 1715 Signed Impressions: Service Date/Time: Saturday, June 24, 2017 17:25 - CONCLUSION: No acute disease. Saul Garsia MD Elbow X-Ray 06/24/17 1639 Signed Impressions: Service Date/Time: Saturday, June 24, 2017 16:49 - CONCLUSION: 1. Mildly displaced olecranon fracture with some probable lytic changes within the proximal ulna, with overlying soft tissue swelling. Differential diagnosis includes infection and tumor. Saul Garsia MD Objective Remarks GENERAL: This is a well-nourished, well-developed patient, in no apparent distress. CARDIOVASCULAR: Regular rate and regular rhythm without murmurs, gallops, or rubs. RESPIRATORY: Clear to auscultation. Breath sounds equal bilaterally. No wheezes , rales, or rhonchi. GASTROINTESTINAL: Abdomen soft, non-tender, nondistended. Normal, active bowel sounds MUSCULOSKELETAL: left arm covered with clean dressing. NEURO: Alert & Oriented x4 to person, place, time, situation. Moves all ext x4 Medications and IVs Inpatient Medications Acetaminophen (Tylenol) 650 mg Q4H PRN PO TEMP > 100.4; Start 06/24/17 at 19:00 Acetaminophen/ Hydrocodone Bitart ([place] 5-325 Mg) 1 tab Q4H PRN PO pain 2-10 Last administered on 06/26/17at 00:01; Start 06/24/17 at 19:30 Alprazolam (Xanax) 0.5 mg ONCE ONCE PO Last administered on 06/25/17at 23:56; Start 06/25/17 at 23:45; Stop 06/25/17 at 23:46; Status DC Bisacodyl (Dulcolax Supp) 10 mg DAILY PRN RECTAL SEVERE CONSITIPATION; Start at 19:00 Enoxaparin Sodium (Lovenox Inj) 40 mg Q24H SQ ; Start 06/24/17 at 21:00; Stop at 21:00; Status DC Flumazenil (Romazicon Inj) 0.2 mg Q1M PRN IV PUSH SEE LABEL COMMENTS; Start at 18:30 Folic Acid (Folate) 1 mg DAILY PO Last administered on 06/25/17at 09:10; Start 06/25/17 at 09:00; Stop 06/30/17 at 08:59 Lactulose (Lactulose Liq) 30 ml DAILY PRN PO SEVERE CONSITIPATION; Start at 19:00 Lorazepam (Ativan Inj) 2 mg Q15M PRN IV PUSH CIWA > 20; Start 06/24/17 at 18:30 Lorazepam (Ativan) 0.5 mg ONCE ONCE PO Last administered on 06/25/17at 21:27; Start 06/25/17 at 21:00; Stop 06/25/17 at 21:01; Status DC Magnesium Hydroxide (Milk Of Magnesia Liq) 30 ml Q12H PRN PO Mild constipation ; Start 06/24/17 at 19:00 Multivitamins/ Minerals Therapeutic (Theragran M Tab) 1 tab DAILY PO Last administered on 06/25/17at 09:10; Start 06/25/17 at 09:00; Stop 06/30/17 at 08:59 Naloxone HCl (Narcan Inj) 0.4 mg UNSCH PRN IV PUSH SEE LABEL COMMENTS; Start at 19:00 Nicotine (Habitrol 21 Mg Patch.24 Hr) 1 patch ONCE ONCE T-DERMAL Last administered on 06/24/17 18:02; Start 06/24/17 at 17:45; Stop 06/24/17 at 17:46 ; Status DC Ondansetron HCl (Zofran Inj) 4 mg Q6H PRN IVP NAUSEA OR VOMITING Last administered on 06/25/17at 04:31; Start 06/24/17 at 19:00 Senna/Docusate Sodium (Linda-Colace) 1 tab BID PO Last administered on at 21:23; Start 06/24/17 at 21:00 Sennosides (Senokot) 17.2 mg Q12H PRN PO Moderate constipation; Start 06/24/17 at 19:00 Sodium Chloride 1,000 ml @ 84 mls/hr [id number] IV Last administered on at 21:35; Start 06/25/17 at 09:00 Sodium Chloride (NS Flush) 2 ml BID IV FLUSH Last administered on 06/25/17at 21: 27; Start 06/24/17 at 21:00 Thiamine HCl (Vitamin B1) 100 mg DAILY PO Last administered on 06/25/17at 09:11 ; Start 06/25/17 at 09:00 A/P Assessment and Plan A/P EtOH use with withdrawals/ Acute encephalopathy 2/2 EtOH use continue folic acid, multivitamin,thiamine- on [facility] protocol- counselled on drinking cessation. Suicidal ideation ngo acted; psych consulted; ngo act lifted- cleared for discharge. Fall mechanical with mildly displaced left olecranon nondisplaced fracture. Lytic lesions. ortho consulted and plan for ortho intervention today. hematology consulted; CT of the left upper extremity ordered with no reported lytic lesions; hematology has signed off. possible UTI; start on antibiotic and follow the culture. hypokalemia; will replace. DVT prophylaxis; Lovenox on hold for planned surgery. Discharge Planning for surgical intervention today. Shabnam Jaquez MD Jun 26, 2017 08:08
[2017-06-26] MEDS ORDERED: NS + KCL 20 MEQ INJ 1,000 ML IV SCH (08:30)
[2017-06-26] MEDS: MULTIVITAMINS/MINERALS THERAPEUTIC TAB PO SCH (09:00)
[2017-06-26] MEDS: DOCUSATE SODIUM 50 MG/SENNA 8.6 MG TAB PO SCH ×2 (09:00→20:18)
[2017-06-26] MEDS: cefTRIAXone INJ 1,000 MG in SODIUM CHLORIDE 0.9% INJ 100 ML IV SCH (09:00)
[2017-06-26] MEDS: SODIUM CHLORIDE 0.9% FLUSH 10 ML FLUSH IV FLUSH SCH ×2 (09:00→21:00)
[2017-06-26] MEDS: FOLIC ACID 1 MG TAB PO SCH (09:00)
[2017-06-26] MEDS: THIAMINE HCL 100 MG TAB PO SCH (09:00)
[2017-06-26] MEDS ORDERED: ACETAMINOPHEN 1000 MG/100 ML 100 ML IV ONE (09:43)
[2017-06-26] MEDS ORDERED: HYDROmorphone HCL PF 2 MG/ML VIAL ONE (09:57)
[2017-06-26] MEDS ORDERED: GENTAMICIN SULFATE 80 MG/2 ML VIAL ONE (10:04)
[2017-06-26] MEDS ORDERED: HYDR-3580 PO (11:08)
[2017-06-26] MEDS ORDERED: VANCOMYCIN HCL 1000 MG VIAL ONE (11:37)
[2017-06-26] MEDS ORDERED: SODIUM CHLOR 0.9% 250 ML INJ 250 ML ONE (11:37)
[2017-06-26] MEDS ORDERED: PHENYLEPH/NS 1000 MCG/10 ML SYR IV ONE (12:00)
[2017-06-26] MEDS ORDERED: GLYCOPYRROLATE 1 MG/5 ML SYRINGE IV PUSH ONE (12:00)
[2017-06-26] MEDS ORDERED: LIDOCAINE HCL 1% PF 5 ML SYRINGE OTHER ONE (12:00)
[2017-06-26] MEDS ORDERED: PROPOFOL 200 MG/20 ML AMP IV ONE (12:00)
[2017-06-26] MEDS ORDERED: ePHEDrine/NS 25 MG/5 ML SYRINGE IV ONE (12:00)
[2017-06-26] MEDS ORDERED: NEOSTIGMINE 5 MG/5 ML SYRINGE IV PUSH ONE (12:00)
[2017-06-26] MEDS ORDERED: ROCURONIUM INJ 50 MG/5 ML SYRINGE IV PUSH ONE (12:00)
[2017-06-26] MEDS ORDERED: KETOROLAC TROMETHAMINE 30 MG/ML (IVP) VIAL IV PUSH ONE (12:00)
[2017-06-26] MEDS ORDERED: ONDANSETRON HCL 4 MG/2 ML VIAL IV ONE (12:00)
[2017-06-26] MEDS ORDERED: DEXAMETHASONE SOD PHOS 4 MG/ML VIAL IV ONE (12:00)
--- NOTE | 2017-06-26 12:07 | PD.OP ---
Operative Report Date of Surgery: Jun 26, 2017 Preoperative Diagnosis: Left olecranon fracture Postoperative Diagnosis: Procedure: ORIF left olecranon Anesthesia: General Surgeon: Jah Mehta [employer] Advisor(s): HAILEY Hanson PA-C The surgical procedure was assisted by my physician assistant oceanographer. My P.A. presence was necessary throughout this case for the manipulation and positioning of the surgical extremity. My P.A. was assisting me throughout the duration of this procedure. The skill set of a physician assistant oceanographer was medically necessary to complete this procedure. During the surgical case the surgical garment fitter was working at the back table and the physician assistant oceanographer was directly assisting me. Operation and Findings: Implants used: Synthes Details of procedure: Patient was seen and evaluated preoperatively. Patient was found to have a displaced intra-articular left olecranon fracture. The risk and benefits of the surgery were discussed in depth and informed consent was obtained. Risk of surgery include bleeding, infection, painful hardware, wound, case, elbow stiffness, loss of motion, elbow arthritis, injuries to arteries nerves or blood vessels, weakness and numbness of hand, as well as medical complications associated with general anesthesia. All questions were answered. Patient was brought to operating room. IV sedation and anesthesia were administered. Patient was placed into a lateral decubitus position. Timeout procedure was performed. IV antibiotics were administered prior to incision. The operative arm was prepped with alcohol followed by Hibiclens and draped in usual sterile fashion. Procedure began with a 4 inch incision over the olecranon. Subcutaneous tissue dissected with Bovie. Fracture site was visualized. Fascia was elevated around the fracture site. There was mild comminution of the fracture site. Fracture fragments were gently manipulated. A fracture tenaculum was used to aid in reduction. Multiple K wires result provisional fixation. A Synthes proximal plate was selected. Plate was provisionally held with K wires 3.5 cortical screws were used to compress plate to bone. Multiple cortical screws were placed in the ulna shaft. Multiple locking screws were placed in the proximal ulna. All screws were predrilled and premeasured for appropriate length. K wires were removed. Final fluoroscopy revealed excellent of fractures well-placed hardware. Articular surface appeared to be in near anatomic alignment. Wound was now thoroughly irrigated. Incision was now closed with #1 Vicryl, 3-0 Vicryl, and belen. Sterile dressings were applied. Patient's placed a well molded well-padded splint. Patient was transferred to recovery in stable condition. Jah Mehta MD Jun 26, 2017 12:07
[2017-06-26] MEDS ORDERED: SUGAMMADEX SODIUM 200 MG/2 ML VIAL IV PUSH ONE (12:13)
[2017-06-26] MEDS ORDERED: Post-op Orders (for Pharmacy) XX ONE (12:15)
[2017-06-26] MEDS ORDERED: MORPHINE SULFATE 4 MG/ML INJ IV PUSH PRN (12:15)
[2017-06-26] MEDS ORDERED: MIDAZOLAM HCL 2 MG/2 ML VIAL ONE (12:27)
[2017-06-26] MEDS ORDERED: *MEPERIDINE 25 MG INJ VIAL PERIprocedural Use ONLY ONE (12:29)
[2017-06-26] MEDS ORDERED: *morphine SULFATE 8 MG/ML PERIprocedure ONLY ONE ×2 (12:35→12:46)
[2017-06-26] MEDS: ceFAZolin 2 GM PREMIX 50 ML IV SCH ×2 (13:50→22:19)
--- NOTE | 2017-06-26 14:18 | RADRPT ---
EXAM DATE/TIME: 06/26/2017 11:52 [facility] COMPARISON: ELBOW LEFT COMPLETE (4 VWS), June 24, 2017, 16:49. INDICATIONS : ORIF left elbow fracture. MEDICAL HISTORY : Unobtainable. SURGICAL HISTORY : Unobtainable. ENCOUNTER: Subsequent ACUITY: 2 days PAIN SCORE: Non-responsive. LOCATION: Left elbow. FINDINGS: There are postsurgical changes with operative reduction and internal fixation of the previously seen fracture. The alignment is anatomic. CONCLUSION: Postsurgical changes as above. Skinny Barker MD on June 26, 2017 at 14:16 Board Certified Radiologist. This report was verified electronically.
[2017-06-26] MEDS: ACETAMINOPHEN/HYDROcodone 325 MG/7.5 MG TAB PO PRN (20:18)
[2017-06-26] MEDS: CALCIUM/VITAMIN D 250 MG/125 U TAB PO SCH (20:18)
[2017-06-26] MEDS ORDERED: LORazepam 0.5 MG TAB PO ONE (21:00)
[2017-06-26 22:03] LABS: ALB/GLOB RATIO (SPE) 1.73 (1.39-2.23)
[2017-06-26] MEDS ORDERED: ALPRAZolam 0.5 MG TAB PO PRN (22:30)
--- NOTE | 2017-06-27 00:07 | EKG ---
Date Performed: 06/26/2017 Time Performed: 03:55:53 PTAGE: 62 years EKG: Sinus rhythm NORMAL ECG NO PREVIOUS TRACING DOCTOR: Charles Mendoza Interpretating Date/Time 06/27/2017 00:05:53
[2017-06-27 00:35] VITALS: BP 135/66; PULSE 71; RESP 16; TEMP 97.8; O2SAT 95
[2017-06-27] MEDS: ACETAMINOPHEN/HYDROcodone 325 MG/7.5 MG TAB PO PRN ×3 (02:22→12:23)
[2017-06-27 04:00] VITALS: BP 147/67; PULSE 78; RESP 16; TEMP 98.8; O2SAT 96
[2017-06-27 04:10] VITALS: PULSE 56
[2017-06-27] MEDS: ceFAZolin 2 GM PREMIX 50 ML IV SCH (06:04)
[2017-06-27 07:42] VITALS: BP 135/63; PULSE 72; RESP 17; TEMP 97.7; O2SAT 96
[2017-06-27] MEDS: FOLIC ACID 1 MG TAB PO SCH (08:44)
[2017-06-27] MEDS: CALCIUM/VITAMIN D 250 MG/125 U TAB PO SCH (08:44)
[2017-06-27] MEDS: THIAMINE HCL 100 MG TAB PO SCH (08:44)
[2017-06-27] MEDS: MULTIVITAMINS/MINERALS THERAPEUTIC TAB PO SCH (08:44)
[2017-06-27] MEDS: DOCUSATE SODIUM 50 MG/SENNA 8.6 MG TAB PO SCH (08:44)
[2017-06-27] MEDS: cefTRIAXone INJ 1,000 MG in SODIUM CHLORIDE 0.9% INJ 100 ML IV SCH (08:45)
[2017-06-27] MEDS: SODIUM CHLORIDE 0.9% FLUSH 10 ML FLUSH IV FLUSH SCH (08:45)
[2017-06-27] MEDS ORDERED: CHOLECALCIFEROL (VIT D3) 1000 UNIT TAB PO SCH (09:00)
--- NOTE | 2017-06-27 09:19 | PD.ORT.PN ---
Subjective Subjective Remarks Pain controlled with no new complaints Objective Vitals Vital Signs Date Time Temp Pulse Resp B/P (MAP) Pulse Ox O2 Delivery O2 Flow Rate FiO2 06/27/17 07:42 97.7 72 17 135/63 (87) 96 06/27/17 04:10 56 06/27/17 04:00 98.8 78 16 147/67 (93) 96 06/27/17 00:35 97.8 71 16 135/66 (89) 95 06/26/17 23:02 66 06/26/17 19:45 97.8 74 16 151/70 (97) 95 06/26/17 16:00 97.5 61 17 132/65 (87) 94 06/26/17 15:44 96 21 06/26/17 14:10 67 16 96 Nasal Cannula 2 06/26/17 14:00 97.6 68 16 121/62 (81) 96 Nasal Cannula 2 06/26/17 13:45 69 16 125/63 (83) 95 Nasal Cannula 2 06/26/17 13:30 67 15 121/63 (82) 95 Nasal Cannula 2 06/26/17 13:29 15 06/26/17 13:15 66 15 120/61 (80) 95 Nasal Cannula 2 06/26/17 13:00 69 15 122/65 (84) 94 Nasal Cannula 2 06/26/17 12:45 70 15 129/68 (88) 94 Nasal Cannula 2 06/26/17 12:40 15 06/26/17 12:30 78 15 124/70 (88) 100 Nasal Cannula 3 06/26/17 12:20 97.8 81 14 121/63 (82) 99 Nasal Cannula 3 I/O 06/26/17 06/26/17 06/26/17 06/27/17 06/27/17 06/27/17 07:00 15:00 23:00 07:00 15:00 23:00 Intake Total 300 ml 480 ml 480 ml Output Total 50 ml Balance 250 ml 480 ml 480 ml Intake Oral 480 ml 480 ml Other 300 ml Output Estimated Blood Loss 50 ml # Voids 0 3 4 # Bowel Movements 0 0 Result Diagram: 06/25/17 1136 06/26/17 0506 Imaging Last 72 hours Impressions Elbow X-Ray 06/26/17 0000 Signed Impressions: Service Date/Time: Monday, June 26, 2017 11:52 - CONCLUSION: Postsurgical changes as above. Skinny Barker MD Upper Extremity CT 06/25/17 0000 Signed Impressions: Service Date/Time: Sunday, June 25, 2017 11:41 - CONCLUSION: Mild comminuted fracture deformity of the olecranon again noted. Ricardo Oropeza MD Chest X-Ray 06/24/17 1715 Signed Impressions: Service Date/Time: Saturday, June 24, 2017 17:25 - CONCLUSION: No acute disease. Saul Garsia MD Elbow X-Ray 06/24/17 1639 Signed Impressions: Service Date/Time: Saturday, June 24, 2017 16:49 - CONCLUSION: 1. Mildly displaced olecranon fracture with some probable lytic changes within the proximal ulna, with overlying soft tissue swelling. Differential diagnosis includes infection and tumor. Saul Garsia MD Objective Remarks Left upper extremity: No pain with shoulder motion. Long arm splint in place. Distally intact sensation with good capillary refills with full extension flexion of all fingers Assessment & Plan Assessment and Plan Left olecranon fracture ORIF POD 1 Maintain splint and sling when ambulating Nonweightbearing left upper extremity Discharge to home if safe Follow-up with Dr. Wynn or PA in 2 weeks Ricardo Schmidt Jr. Jun 27, 2017 09:19
[2017-06-27] MEDS ORDERED: CEFU1TAB20 PO (11:35)
--- NOTE | 2017-06-27 11:36 | HHI.DS ---
Discharge Summary Admission Date Jun 24, 2017 at 19:00 Discharge Date: Jun 27, 2017 Admitting Diagnosis Fracture of left olecranon, suicidal ideation, alcohol intoxication (1) Fracture of left olecranon process ICD Code: S52.022A - Displaced fracture of olecranon process without intraarticular extension of left ulna, initial encounter for closed fracture Status: Acute (2) Suicidal ideations ICD Code: R45.851 - Suicidal ideations Status: Acute (3) Alcohol intoxication ICD Code: F10.929 - Alcohol use, unspecified with intoxication, unspecified Status: Acute (4) UTI (urinary tract infection) ICD Code: N39.0 - Urinary tract infection, site not specified Procedures Left olecranon fracture ORIF Brief History - From Admission HPI from the admitting physician 62-year-old female brought in under the Sanchez act from [facility]. Patient was seen earlier in [facility], and Sanchez acted for suicidal ideation. Patient was intoxicated, and stated that she wanted to kill herself and she has no friends and hates her life. She was then placed under the Sanchez acted inappropriately transferred to [facility] who then sent her here due to her intoxication. She is here for medical clearance and psych eval. She has no known drug allergies. Patient in agitated and fidgety. With flight of ideas. Says last drink was today 2 glassed of hard liquor. Says she has pain in her left elbow. No n/v/d/c. Patrick chest pain or sob. Says she usually doesn't get withdrawals. CBC/BMP: 06/25/17 1136 06/26/17 0506 Significant Findings Laboratory Tests Test 06/24/17 16:20 06/24/17 19:47 06/25/17 02:35 06/25/17 11:30 Hemoglobin 16.7 GM/DL (11.6-15.3) Hematocrit 47.8 % (35.0-46.0) Creatinine 1.19 MG/DL (0.50-1.00) Chloride Level 108 MEQ/L (98-107) Estimat Glomerular Filtration Rate 46 ML/MIN (>89) 62 ML/MIN (>89) Ethyl Alcohol Level 243 MG/DL (0-5) Urine Nitrite POS (NEG) Urine Leukocyte Esterase SMALL (NEG) Urine WBC 15 /hpf (0-5) Urine WBC Clumps RARE (NONE) Urine Bacteria MANY /hpf (NONE) Urine Benzodiazepines Screen POS (NEG) Blood Urea Nitrogen 19 MG/DL (7-18) Potassium Level 3.4 MEQ/L (3.5-5.1) Test 06/25/17 11:36 06/25/17 13:20 06/26/17 05:06 Neutrophils (%) (Auto) 74.9 % (16.0-70.0) Total Iron Binding Capacity 480 MCG/DL (250-450) Immunoglobulin G Total 635 MG/DL (650-1610) [place] Light Chain Analysis 152 MG/DL (170-370) Lambda Light Chain Analysis 85 MG/DL (90-210) Calcium Level 8.2 MG/DL (8.5-10.1) Potassium Level 3.3 MEQ/L (3.5-5.1) Chloride Level 110 MEQ/L (98-107) Estimat Glomerular Filtration Rate 86 ML/MIN (>89) Imaging Last Impressions Elbow X-Ray 06/26/17 0000 Signed Impressions: Service Date/Time: Monday, June 26, 2017 11:52 - CONCLUSION: Postsurgical changes as above. Skinny Barker MD Upper Extremity CT 06/25/17 0000 Signed Impressions: Service Date/Time: Sunday, June 25, 2017 11:41 - CONCLUSION: Mild comminuted fracture deformity of the olecranon again noted. Ricardo Oropeza MD Chest X-Ray 06/24/17 1715 Signed Impressions: Service Date/Time: Saturday, June 24, 2017 17:25 - CONCLUSION: No acute disease. Saul Garsia MD PE at Discharge GENERAL: This is a well-nourished, well-developed patient, in no apparent distress. CARDIOVASCULAR: Regular rate and regular rhythm without murmurs, gallops, or rubs. RESPIRATORY: Clear to auscultation. Breath sounds equal bilaterally. No wheezes , rales, or rhonchi. GASTROINTESTINAL: Abdomen soft, non-tender, nondistended. Normal, active bowel sounds MUSCULOSKELETAL: left arm is in a cast. Neurovascularly intact at the fingers. NEURO: Alert & Oriented x4 to person, place, time, situation. Moves all ext x4 Pt update on day of discharge Patient reports she is feeling well today. States her mood is normal. Denies suicidal ideation today. Pain is controlled. Anxious to go home. Hospital Course 62-year-old female admitted and treated for the following: EtOH use with withdrawals/ Acute encephalopathy 2/2 EtOH use The patient was counseled extensively to stop using alcohol. Treated per [facility]WA protocol. Did not have any overt withdrawal symptoms. Suicidal ideation sanchez acted; psych consulted; sanchez act lifted- cleared for discharge. Fall mechanical with mildly displaced left olecranon nondisplaced fracture. Orthopedics followed the patient. She underwent ORIF. To follow-up outpatient with orthopedics. ? Lytic lesion of the left upper extremity. Hematology consulted; CT of the left upper extremity ordered with no reported lytic lesions; hematology has signed off. Klebsiella UTI: Sensitivity profile reviewed. Patient to continue treatment with cefuroxime to complete the course. hypokalemia: Replaced. Pt Condition on Discharge: Good Discharge Disposition: Discharge Home Discharge Time: <= 30 minutes Discharge Instructions DIET: Follow Instructions for: As Tolerated, No Restrictions Activities you can perform: See Additionl Instruction Other Activity Instructions: Per Orthopedics instructions Follow up Referrals: Orthopedics - 2 Weeks @ [facility] with Jah Wynn MD New Medications: Hydrocodone-Acetaminophen (Hydrocodone-Acetaminophen) 7.5 Mg-325 Mg Tab 1 TAB PO Q4H PRN for PAIN, #60 TAB 0 Refills Cefuroxime (Cefuroxime) 500 Mg Tab 500 MG PO Q12HR, #6 TAB Tutu Lind MD Jun 27, 2017 11:36
--- NOTE | 2017-06-27 11:36 | HHI.DCPOC ---
Discharge Care Plan Diagnosis: (1) Fracture of left olecranon process (2) Alcohol intoxication (3) Suicidal ideations (4) UTI (urinary tract infection) Goals to Promote Your Health * To prevent worsening of your condition and complications * To maintain your health at the optimal level Directions to Meet Your Goals Take your medications as prescribed Follow your dietary instruction Follow activity as directed Keep your appointments as scheduled Take your immunizations and boosters as scheduled If your symptoms worsen call your PCP, if no PCP go to Urgent Care Center or Emergency Room Smoking is Dangerous to Your Health. Avoid second hand smoke Call the 24-hour hour crisis hotline for domestic abuse at Tutu Lind MD Jun 27, 2017 11:36
[2017-06-27 11:45] VITALS: BP 137/77; PULSE 79; RESP 17; TEMP 97.5; O2SAT 96
[2017-06-28] MEDS ORDERED: CEFUROXIME AXETIL 500 MG TAB PO SCH (09:00)
== END 2017-06-27 12:48 | disposition home or self-care (01) | DRG 981 ==
LOC: NEPD 16:03 → NEDA 18:19 → OBSVTOIN 19:00 → NEPGCP 06-25 03:24 → N06B 06-26 10:23 → N06A 06-26 14:30
PROVIDERS: ADMIT Family Medicine; ATTEND Family Medicine
PROC: 0PSL04Z Reposition Left Ulna with Internal Fixation Device, Open Approach (ICD-10-PCS; principal; 2017-06-26 11:09)
DX: F10.129 Alcohol abuse with intoxication, unspecified (principal); G93.40 Encephalopathy, unspecified; R45.851 Suicidal ideations; D75.1 Secondary polycythemia; N39.0 Urinary tract infection, site not specified; S52.022A Displaced fracture of olecranon process without intraarticular extension of left ulna, initial encounter for closed fracture; Y90.8 Blood alcohol level of 240 mg/100 ml or more; F32.9 Major depressive disorder, single episode, unspecified; W18.30XA Fall on same level, unspecified, initial encounter; I10 Essential (primary) hypertension; T51.0X4A Toxic effect of ethanol, undetermined, initial encounter; E78.5 Hyperlipidemia, unspecified; F41.0 Panic disorder [episodic paroxysmal anxiety]; B96.1 Klebsiella pneumoniae [K. pneumoniae] as the cause of diseases classified elsewhere; E87.6 Hypokalemia; R53.82 Chronic fatigue, unspecified; M79.7 Fibromyalgia; M81.0 Age-related osteoporosis without current pathological fracture; M19.90 Unspecified osteoarthritis, unspecified site; F17.210 Nicotine dependence, cigarettes, uncomplicated; Z96.641 Presence of right artificial hip joint
CPT/HCPCS: 71045; 73080; 73200; 76000; 80048; 80053; 80307; 81001; 82728; 82784; 82948; 83540; 83550; 83690; 83735; 83883; 84100; 84165; 84443; 85025; 86334; 87077; 87086; 87186; 93005; 94150; 95819; C1713; J0131; J0690; J0696; J1100; J1170; J1580; J1650; J1885; J2175; J2250; J2270; J2370; J2405; J2710; J3010; J3370; J3480; J7030; J7050